=== PATIENT | male | born 1985 | race Two or more races ===

== ENCOUNTER 2025-09-10 16:02 | Emergency (ER) | payer SELFPAY ==
--- NOTE | ~2025-09-10 | XR_ITS ---
EXAMINATION: XR foot LT min 3V, XR ankle LT min 3V DATE: 09/10/2025 16:20 INDICATION: Left foot and ankle injury TECHNIQUE: 1. Anteroposterior, mortise, additional oblique and lateral view of the left ankle were obtained. 2. Dorsoplantar, two oblique and lateral views of the left foot were obtained. COMPARISON: None. FINDINGS: Alignment of the left foot and ankle is normal. No fracture. Mild osteoarthritis at the first metatarsophalangeal joint and a few of the interphalangeal joints with distal predominance. Small Achilles calcaneal spur. Small osseous excrescence with cortical and medullary continuity at the posterior aspect of the metaphyseal region of the distal fibula consistent with a benign osteochondroma. 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 Small sclerotic bone island at the cuboid. Soft tissues are unremarkable with no ankle joint effusion. Facet IMPRESSION: 1. No acute osseous abnormality at the left foot or ankle. Reviewed, dictated and finalized at location A. H [employer] WORK[employer] IMPRESSION: 1. No acute osseous abnormality at the left foot or ankle.
[2025-09-10 16:02] VITALS: BP 140/99; PULSE 74; RESP 16; TEMP 36.2; O2SAT 100
--- NOTE | 2025-09-10 16:09 | ED_ITS ---
HPI - Extremity Injury (Lower) General Chief Complaint: Extremity Injury, Lower Stated Complaint: ankle injury Time Seen by Provider: 09/10/25 16:08 Source: patient Mode of arrival: ambulatory Limitations: no limitations History of Present Illness HPI Narrative: This is a 40-year-old male who presents with left foot and ankle pain after he fell yesterday with some mild swelling has good range of motion although tender with palpation and with some walking with no numbness or tingling no other injuries noted. MD complaint: ankle injury and foot injury Onset (ago): day(s) Injury: Left: ankle (Swelling with tenderness) and foot (Swelling with tenderness) Type of Injury: inversion Place: street/outdoors Severity: mild Relieving factors: nothing Exacerbating factors: weight bearing and movement Context: fall Related Data Allergies Allergy/AdvReac Type Severity Reaction Status Date / Time No Known Allergies Allergy Verified 09/10/25 16:11 Review of Systems Review of Systems: All systems reviewed & are unremarkable except as noted in HPI and below Exam Const: General: healthy appearing and no acute distress Nutritional Appearance: well nourished Orientation/consciousness: patient oriented x3 Limitations: no limitations Resp: Effort & Inspection: normal respiratory effort Auscultation: clear to auscultation bilaterally Cardio: Rate: regular rate Rhythm: regular rhythm GI: GI Palp: Yes Soft to palpation Auscultation: normal bowel sounds Skin: General skin exam: normal color Rashes: no rashes Wounds: no wounds Neuro: General: moves all extremities Extrem: Other: Tenderness left ankle and left foot Course Course Emergency Course: Medical decision making narrative: Patient was evaluated by myself in the emergency department. History is obtained by the patient from the patient who is an independent historian physical exam performed and witnessed by nurse and tech. X-ray performed and reviewed with patient. Lucas wrap applied Patient declined any pain medication at this time. Repeat assessment: Patient doing well on repeat exam with no acute distress Symptoms are stable since arrival to the emergency department Repeat vitals are stable Patient agrees with discussion after shared medical decision-making and agree with discharge. All questions answered to the patient's satisfaction Follow-up with primary in the next 3 to 5 days. Vital Signs Vital signs: Vital Signs Temperature 36.2 C L 09/10/25 16:02 Pulse Rate 74 09/10/25 16:02 Respiratory Rate 16 09/10/25 16:02 Blood Pressure 140/99 H 09/10/25 16:02 Pulse Oximetry 100 09/10/25 16:02 Oxygen Delivery Room Air 09/10/25 16:02 Temperature 36.2 C L 09/10/25 16:02 Pulse Rate 74 09/10/25 16:02 Respiratory Rate 16 09/10/25 16:02 Blood Pressure 140/99 H 09/10/25 16:02 Pulse Oximetry 100 09/10/25 16:02 Oxygen Delivery Room Air 09/10/25 16:02 Critical Care Time Critical Care Time Critical Care Time: No Discharge Plan Discharge Clinical Impression: Ankle sprain and strain Patient Disposition: Home Condition: Stable Instructions: Antibiotic Form, Foot Sprain (ED) Additional Instructions: Advise to continue Lucas wrap can use Tylenol or Motrin as needed keep leg elevated can apply ice and follow with primary care within the next 3 to 5 days for further evaluation treatment. Patient Language: Lithuanian Follow-up/Referrals: Chino Watts MD [Primary Care Provider, Internal Medicine] Time of Disposition: 16:39
== END 2025-09-10 16:46 | disposition home or self-care (01) ==
LOC: CHSED 16:45
PROVIDERS: Emergency Provider Emergency Medicine; PCP Internal Medicine
DX: S93.402A Sprain of unspecified ligament of left ankle, initial encounter (principal); S96.912A Strain of unspecified muscle and tendon at ankle and foot level, left foot, initial encounter; W19.XXXA Unspecified fall, initial encounter
CPT/HCPCS: 73610; 73630; 99283